=== PATIENT | male | born 1980 | race Caucasian/White ===

== ENCOUNTER 2020-07-20 12:17 | Emergency (ER) | payer BC, OTHER ==
[~2020-07-20] VITALS: Ht 180.3 cm; Wt 93.0 kg
[2020-07-20 13:27] VITALS: BP 146/73
[2020-07-20] MEDS ORDERED: KETOROLAC TROMETH 60MG/2ML VIAL IM ONE (13:45)
== END 2020-07-20 14:31 | disposition home or self-care (01) ==
LOC: ER 12:17
DX: S39.012A Strain of muscle, fascia and tendon of lower back, initial encounter (principal); X58.XXXA Exposure to other specified factors, initial encounter; Y93.89 Activity, other specified; Y92.89 Other specified places as the place of occurrence of the external cause; Y99.8 Other external cause status
CPT/HCPCS: 96372; 99283; J1885

== ENCOUNTER 2020-10-16 15:52 | Emergency (ER) | payer SELFPAY ==
[~2020-10-16] VITALS: Ht 180.3 cm; Wt 95.3 kg
[2020-10-16 16:00] VITALS: BP 130/87
== END 2020-10-16 19:49 | disposition home or self-care (01) ==
LOC: ER 15:52
DX: S83.92XA Sprain of unspecified site of left knee, initial encounter (principal); X58.XXXA Exposure to other specified factors, initial encounter; Y93.89 Activity, other specified; Y92.89 Other specified places as the place of occurrence of the external cause; Y99.8 Other external cause status
CPT/HCPCS: 73562

== ENCOUNTER 2022-03-15 09:36 | Emergency (ER) | payer OTHER ==
[~2022-03-15] VITALS: Ht 180.3 cm; Wt 116.0 kg
[2022-03-15 10:03] VITALS: BP 161/100
[2022-03-15 11:41] LABS: Urine WBC None Seen /hpf (0 - 3)
[2022-03-15 12:00] LABS: Urine Bacteria NONE SEEN /hpf (None Seen); Urine Blood Negative /uL (Negative); Urine Specific Gravity 1.005 (1.001-1.035)
[2022-03-15] MEDS ORDERED: TRAM-297 PO (12:20)
== END 2022-03-15 13:01 | disposition home or self-care (01) ==
LOC: ER 09:36
DX: R10.9 Unspecified abdominal pain (principal); F12.10 Cannabis abuse, uncomplicated
CPT/HCPCS: 74176; 81001